=== PATIENT | male | born 1960 | race Caucasian/White ===

== ENCOUNTER → 2025-01-30 | Outpatient (CLI) | payer MEDICARE, MEDICAID, SELFPAY ==
--- NOTE | 2025-01-30 10:15 | XR_ITS ---
EXAMINATION: Ultrasound abdominal aorta Date and time: January 30, 2025, 1004 hours INDICATIONS: Encounter for screening for cardiovascular disorders, smoking history TECHNIQUE AND FINDINGS: Sonographic images abdominal aorta Transverse dimension proximal aorta 15 mm mid aorta 13 mm distal aorta 13 mm right iliac 10 mm left iliac 10 mm IMPRESSION: Negative for abdominal aortic aneurysm
== END | disposition home or self-care (01) ==
LOC: CDIM 09:55
PROVIDERS: PCP Physician Assistant Medical; Referring Provider Physician Assistant Medical; Visit Provider Physician Assistant Medical
DX: Z13.6 Encounter for screening for cardiovascular disorders (principal)
CPT/HCPCS: 76706